=== PATIENT | male | born 1950 | race Caucasian/White ===

== ENCOUNTER 2020-05-18 11:38 | Inpatient (IN) | payer MEDICARE ==
[~2020-05-18] VITALS: Ht 165.1 cm; Wt 73.9 kg
[2020-05-18] MEDS ORDERED: PIPERACILLIN/TAZ 3.375G PREMIX 50 ML IV ONE (14:45)
[2020-05-18 14:55] LABS: HEMATOCRIT. 36.5 % (42.0-52.0); MEAN CORPUSCULAR HEMOGLOBIN 27.7 pg (28.0-32.0); MEAN CORPUSCULAR VOLUME 84.5 fL (80.0-94.0); MEAN PLATELET VOLUME 10.3 fl (7.4-10.4); PLATELET 162 x1000/uL (130-400); RED BLOOD CELL COUNT 4.32 mill/uL (4.7-6.1); RED CELL DISTRIBUTION WIDTH 12.8 % (11.6-14.6)
[2020-05-18 14:59] LABS: CHLORIDE 101 mEq/L (98-107)
[2020-05-18] MEDS ORDERED: SODIUM CHLORIDE 0.9% 1000ML BAG (SEPSIS BOLUS) IV ONE (15:30)
[2020-05-18] MEDS ORDERED: VANCOMYCIN 1 G PREMIX 200 ML IV ONE (15:30)
[2020-05-18 16:43] LABS: PLATELET ESTIMATE NORMAL
[2020-05-18] MEDS ORDERED: KETOROLAC 30MG/ML VIAL IV PRN (17:15)
[2020-05-18] MEDS ORDERED: DEXTROSE 50% WATER 50ML SYRINGE IV PRN (17:15)
[2020-05-18] MEDS: INSULIN LISPRO 100 UNITS/ML SUBCUT SCH ×2 (18:48→21:01)
[2020-05-18 19:33] LABS: CLARITY URINE CLEAR (CLEAR); COLOR URINE YELLOW (YELLOW); KETONES URINE NEGATIVE (NEGATIVE); LEUKOCYTE ESTERASE URINE NEGATIVE (NEGATIVE); NITRITE URINE NEGATIVE (NEGATIVE); OCCULT BLOOD URINE NEGATIVE (NEGATIVE); PH URINE 6.5 (4.5-8.0); PROTEIN URINE 2+ (NEGATIVE); SPECIFIC GRAVITY URINE 1.016 (1.005-1.030)
[2020-05-18] MEDS: BLOOD SUGAR DIAGNOSTIC STRIP TEST SCH (21:01)
[2020-05-18] MEDS: ENOXAPARIN 40MG/0.4ML SYR SUBCUT SCH (21:32)
[2020-05-19] VITALS (7 sets, daily range): BP systolic 122–163; BP diastolic 68–89
[2020-05-19] MEDS ORDERED: PIPERACILLIN/TAZ 3.375G PREMIX 50 ML IV SCH
[2020-05-19] MEDS: ACETAMINOPHEN 325MG TABLET PO PRN ×2 (00:06→12:16)
[2020-05-19] MEDS: CLONIDINE 0.1MG TABLET PO PRN (00:07)
[2020-05-19] MEDS: PIPERACILLIN/TAZOBACTAM 3.375 G in DEXT 5% WATER 100 ML IV SCH ×5 (00:36→23:24)
[2020-05-19] MEDS ORDERED: VANCOMYCIN 1250MG in DEXTROSE 5% WATER 250ML IV SCH (06:00)
[2020-05-19 06:26] LABS: CHLORIDE 106 mEq/L (98-107)
[2020-05-19 06:32] LABS: BASOPHILS % 0.5 % (0.0-2.0); EOSINOPHILS % 0.1 % (0.0-5.0); HEMATOCRIT. 31.6 % (42.0-52.0); HEMOGLOBIN. 10.5 g/dL (14.0-18.0); LYMPHOCYTES % 10.7 % (20.0-50.0); MEAN CORPUSCULAR HEMOGLOBIN 27.8 pg (28.0-32.0); MEAN CORPUSCULAR VOLUME 83.6 fL (80.0-94.0); MEAN PLATELET VOLUME 9.9 fl (7.4-10.4); MONOCYTES % 6.1 % (2.0-8.0); NEUTROPHILS % 82.6 % (40.0-76.0); PLATELET 139 x1000/uL (130-400); RED BLOOD CELL COUNT 3.78 mill/uL (4.7-6.1); RED CELL DISTRIBUTION WIDTH 12.8 % (11.6-14.6)
[2020-05-19] MEDS: VANCOMYCIN 1250MG in DEXTROSE 5% WATER 250ML IV SCH (06:52)
[2020-05-19] MEDS: BLOOD SUGAR DIAGNOSTIC STRIP TEST SCH ×4 (06:52→21:11)
[2020-05-19] MEDS: INSULIN LISPRO 100 UNITS/ML SUBCUT SCH ×4 (07:49→22:27)
[2020-05-19] MEDS: LISINOPRIL 20MG TABLET PO SCH (08:31)
[2020-05-19] MEDS: ENOXAPARIN 40MG/0.4ML SYR SUBCUT SCH (21:10)
[2020-05-20] VITALS: BP 126/62
[2020-05-20] MEDS: VANCOMYCIN 1250MG in DEXTROSE 5% WATER 250ML IV SCH (00:27)
[2020-05-20] MEDS: ACETAMINOPHEN 325MG TABLET PO PRN (00:49)
[2020-05-20 04:00] VITALS: BP 139/50
[2020-05-20] MEDS: PIPERACILLIN/TAZOBACTAM 3.375 G in DEXT 5% WATER 100 ML IV SCH ×4 (05:21→23:14)
[2020-05-20] MEDS: BLOOD SUGAR DIAGNOSTIC STRIP TEST SCH ×4 (06:50→21:04)
[2020-05-20 07:26] LABS: CHLORIDE 104 mEq/L (98-107)
[2020-05-20 08:00] VITALS: BP 146/78
[2020-05-20] MEDS: INSULIN LISPRO 100 UNITS/ML SUBCUT SCH ×4 (08:08→21:06)
[2020-05-20] MEDS: LISINOPRIL 20MG TABLET PO SCH (08:42)
[2020-05-20 08:51] LABS: HEMATOCRIT. 32.9 % (42.0-52.0); HEMOGLOBIN. 10.9 g/dL (14.0-18.0); MEAN CORPUSCULAR HEMOGLOBIN 27.6 pg (28.0-32.0); MEAN PLATELET VOLUME 10.3 fl (7.4-10.4); PLATELET 135 x1000/uL (130-400); RED BLOOD CELL COUNT 3.95 mill/uL (4.7-6.1); RED CELL DISTRIBUTION WIDTH 12.8 % (11.6-14.6)
[2020-05-20 08:52] LABS: MEAN CORPUSCULAR VOLUME 83.4 fL (80.0-94.0)
[2020-05-20 10:13] LABS: PLATELET ESTIMATE NORMAL
[2020-05-20 12:00] VITALS: BP 157/76
[2020-05-20 16:00] VITALS: BP 153/74
[2020-05-20] MEDS: VANCOMYCIN 750 MG PREMIX 150 ML IV SCH (18:14)
[2020-05-20 20:00] VITALS: BP 144/63
[2020-05-20] MEDS: ENOXAPARIN 40MG/0.4ML SYR SUBCUT SCH (20:27)
[2020-05-21] VITALS: BP 146/67
[2020-05-21] MEDS: ACETAMINOPHEN 325MG TABLET PO PRN (00:26)
[2020-05-21 04:00] VITALS: BP 149/65
[2020-05-21] MEDS: VANCOMYCIN 750 MG PREMIX 150 ML IV SCH ×2 (05:01→17:55)
[2020-05-21 06:22] LABS: HEMATOCRIT. 34.9 % (42.0-52.0); HEMOGLOBIN. 11.6 g/dL (14.0-18.0); MEAN CORPUSCULAR HEMOGLOBIN 27.7 pg (28.0-32.0); MEAN CORPUSCULAR VOLUME 83.4 fL (80.0-94.0); MEAN PLATELET VOLUME 10.3 fl (7.4-10.4); PLATELET 197 x1000/uL (130-400); RED BLOOD CELL COUNT 4.19 mill/uL (4.7-6.1); RED CELL DISTRIBUTION WIDTH 13.1 % (11.6-14.6)
[2020-05-21] MEDS: PIPERACILLIN/TAZOBACTAM 3.375 G in DEXT 5% WATER 100 ML IV SCH ×3 (06:45→17:55)
[2020-05-21] MEDS: BLOOD SUGAR DIAGNOSTIC STRIP TEST SCH ×4 (06:46→21:16)
[2020-05-21 06:58] LABS: CHLORIDE 102 mEq/L (98-107)
[2020-05-21 08:00] VITALS: BP 146/61
[2020-05-21] MEDS: INSULIN LISPRO 100 UNITS/ML SUBCUT SCH ×4 (08:41→21:00)
[2020-05-21] MEDS: LISINOPRIL 20MG TABLET PO SCH (08:50)
[2020-05-21 12:00] VITALS: BP 147/76
[2020-05-21 13:22] LABS: PLATELET ESTIMATE NORMAL
[2020-05-21 16:00] VITALS: BP 168/90
[2020-05-21 20:00] VITALS: BP 149/80
[2020-05-21] MEDS: ENOXAPARIN 40MG/0.4ML SYR SUBCUT SCH (21:00)
[2020-05-22] VITALS (7 sets, daily range): BP systolic 147–190; BP diastolic 67–86
[2020-05-22] MEDS: PIPERACILLIN/TAZOBACTAM 3.375 G in DEXT 5% WATER 100 ML IV SCH ×4 (00:59→17:18)
[2020-05-22 04:19] LABS: HEMATOCRIT. 31.5 % (42.0-52.0); HEMOGLOBIN. 10.5 g/dL (14.0-18.0); MEAN CORPUSCULAR HEMOGLOBIN 27.4 pg (28.0-32.0); MEAN CORPUSCULAR VOLUME 82.2 fL (80.0-94.0); MEAN PLATELET VOLUME 9.5 fl (7.4-10.4); RED BLOOD CELL COUNT 3.83 mill/uL (4.7-6.1); RED CELL DISTRIBUTION WIDTH 13.1 % (11.6-14.6)
[2020-05-22 04:22] LABS: CHLORIDE 101 mEq/L (98-107)
[2020-05-22 04:39] LABS: VANCOMYCIN TROUGH 14.5 ug/mL (5.0-10.0)
[2020-05-22] MEDS: VANCOMYCIN 750 MG PREMIX 150 ML IV SCH (06:51)
[2020-05-22] MEDS: BLOOD SUGAR DIAGNOSTIC STRIP TEST SCH ×4 (07:06→21:29)
[2020-05-22 07:33] LABS: PLATELET ESTIMATE NORMAL
[2020-05-22 07:34] LABS: PLATELET 149 x1000/uL (130-400)
[2020-05-22] MEDS: INSULIN LISPRO 100 UNITS/ML SUBCUT SCH ×4 (08:46→21:39)
[2020-05-22] MEDS: LISINOPRIL 20MG TABLET PO SCH (09:09)
[2020-05-22] MEDS: CLONIDINE 0.1MG TABLET PO PRN (09:12)
[2020-05-22] MEDS ORDERED: IOHEXOL-350 100 ML BOTTLE ONE (10:41)
[2020-05-22] MEDS ORDERED: AMLODIPINE 10MG TABLET PO NR (13:30)
[2020-05-22] MEDS: VANCOMYCIN 1 G PREMIX 200 ML IV SCH (17:19)
[2020-05-22] MEDS: TAMSULOSIN HCL 0.4MG SR CAPSULE PO SCH (18:47)
[2020-05-22] MEDS: ENOXAPARIN 40MG/0.4ML SYR SUBCUT SCH (21:00)
[2020-05-23] VITALS: BP 117/70
[2020-05-23] MEDS: PIPERACILLIN/TAZOBACTAM 3.375 G in DEXT 5% WATER 100 ML IV SCH ×3 (00:19→12:00)
[2020-05-23 04:00] VITALS: BP 117/72
[2020-05-23] MEDS: VANCOMYCIN 1 G PREMIX 200 ML IV SCH ×3 (05:56→19:08)
[2020-05-23] MEDS: BLOOD SUGAR DIAGNOSTIC STRIP TEST SCH ×4 (06:20→21:30)
[2020-05-23 08:00] VITALS: BP 162/73
[2020-05-23] MEDS: AMLODIPINE 10MG TABLET PO SCH (08:37)
[2020-05-23] MEDS: LISINOPRIL 20MG TABLET PO SCH (08:37)
[2020-05-23] MEDS: TAMSULOSIN HCL 0.4MG SR CAPSULE PO SCH (08:39)
[2020-05-23] MEDS: ACETAMINOPHEN 325MG TABLET PO PRN (08:40)
[2020-05-23] MEDS: INSULIN LISPRO 100 UNITS/ML SUBCUT SCH ×4 (08:40→21:34)
[2020-05-23 12:00] VITALS: BP 133/71
[2020-05-23] MEDS ORDERED: NITROGLYCERIN 0.2MG/HR PATCH TOP STA (12:15)
[2020-05-23] MEDS ORDERED: GENTAMICIN SULF 40MG/ML 2ML VIAL ONE (12:23)
[2020-05-23] MEDS ORDERED: BACITRACIN 50,000 UNITS/VIAL ONE (12:23)
[2020-05-23] MEDS ORDERED: VANCOMYCIN HCL 1 GM/VIAL ONE (12:23)
[2020-05-23] MEDS ORDERED: LIDOCAINE HCL 1% 20ML VIAL (Pyxis) INJ ONE (12:24)
[2020-05-23] MEDS ORDERED: BUPIVACAINE HCL/PF 0.5% (5MG/ML) 10ML ONE (12:24)
[2020-05-23] MEDS ORDERED: LIDOCAINE HCL/PF 1% 10 MG/ML 5ML VIAL ONE (12:34)
[2020-05-23] MEDS ORDERED: FENTANYL CITRATE/PF 50MCG/ML 2ML VIAL ONE (12:34)
[2020-05-23] MEDS ORDERED: PROPOFOL 200MG/20ML VIAL IV ONE (12:34)
[2020-05-23] MEDS ORDERED: CEFAZOLIN SODIUM 1000MG/VIAL ONE (12:34)
[2020-05-23] MEDS ORDERED: SODIUM CHLORIDE 0.9% 10ML VIAL ONE (12:35)
[2020-05-23] MEDS ORDERED: EPHEDRINE SULFATE 50MG/ML VIAL ONE (13:11)
[2020-05-23] MEDS ORDERED: FENTANYL CITRATE/PF 50MCG/ML 2ML VIAL IV PRN (14:00)
[2020-05-23] MEDS ORDERED: MEPERIDINE HCL/PF 25MG/ML CPJ IV PRN (14:00)
[2020-05-23 16:00] VITALS: BP 87/51
[2020-05-23 20:00] VITALS: BP 121/62
[2020-05-23] MEDS: ENOXAPARIN 40MG/0.4ML SYR SUBCUT SCH (21:35)
[2020-05-24] VITALS (7 sets, daily range): BP systolic 104–159; BP diastolic 33–75
[2020-05-24] MEDS: PIPERACILLIN/TAZOBACTAM 3.375 G in DEXT 5% WATER 100 ML IV SCH ×4 (00:52→17:30)
[2020-05-24 05:03] LABS: CHLORIDE 104 mEq/L (98-107); VANCOMYCIN TROUGH 10.7 ug/mL (5.0-10.0)
[2020-05-24 05:27] LABS: BASOPHILS % 0.8 % (0.0-2.0); EOSINOPHILS % 0.1 % (0.0-5.0); HEMATOCRIT. 28.4 % (42.0-52.0); HEMOGLOBIN. 9.4 g/dL (14.0-18.0); MEAN CORPUSCULAR HEMOGLOBIN 27.4 pg (28.0-32.0); MEAN CORPUSCULAR VOLUME 83.3 fL (80.0-94.0); MEAN PLATELET VOLUME 9.1 fl (7.4-10.4); MONOCYTES % 6.3 % (2.0-8.0); NEUTROPHILS % 83.8 % (40.0-76.0); PLATELET 243 x1000/uL (130-400); RED BLOOD CELL COUNT 3.41 mill/uL (4.7-6.1); RED CELL DISTRIBUTION WIDTH 13.2 % (11.6-14.6)
[2020-05-24] MEDS: BLOOD SUGAR DIAGNOSTIC STRIP TEST SCH ×4 (07:50→21:35)
[2020-05-24] MEDS ORDERED: HYDR-4001 MT (08:22)
[2020-05-24] MEDS: TAMSULOSIN HCL 0.4MG SR CAPSULE PO SCH (08:40)
[2020-05-24] MEDS: AMLODIPINE 10MG TABLET PO SCH (08:40)
[2020-05-24] MEDS: LISINOPRIL 20MG TABLET PO SCH (08:41)
[2020-05-24] MEDS: INSULIN LISPRO 100 UNITS/ML SUBCUT SCH ×4 (09:02→21:45)
[2020-05-24] MEDS ORDERED: LISI-604 PO (12:49)
[2020-05-24] MEDS ORDERED: AMLO10TA80 PO (12:49)
[2020-05-24] MEDS ORDERED: TAMS-11 PO (12:49)
[2020-05-24] MEDS: VANCOMYCIN 750 MG PREMIX 150 ML IV SCH ×2 (12:57→21:37)
[2020-05-24] MEDS: ACETAMINOPHEN 325MG TABLET PO PRN (16:13)
[2020-05-24] MEDS: NITROGLYCERIN 0.2MG/HR PATCH TOP SCH (17:31)
[2020-05-24] MEDS: ENOXAPARIN 40MG/0.4ML SYR SUBCUT SCH (21:37)
[2020-05-25] VITALS: BP 110/58
[2020-05-25] MEDS: PIPERACILLIN/TAZOBACTAM 3.375 G in DEXT 5% WATER 100 ML IV SCH ×4 (00:11→18:00)
[2020-05-25 04:00] VITALS: BP 125/66
[2020-05-25] MEDS: VANCOMYCIN 750 MG PREMIX 150 ML IV SCH ×2 (06:25→14:45)
[2020-05-25 06:39] LABS: BASOPHILS % 0.9 % (0.0-2.0); EOSINOPHILS % 0.5 % (0.0-5.0); HEMATOCRIT. 28.6 % (42.0-52.0); HEMOGLOBIN. 9.4 g/dL (14.0-18.0); LYMPHOCYTES % 8.8 % (20.0-50.0); MEAN CORPUSCULAR HEMOGLOBIN 27.4 pg (28.0-32.0); MEAN CORPUSCULAR VOLUME 82.8 fL (80.0-94.0); MEAN PLATELET VOLUME 9.3 fl (7.4-10.4); NEUTROPHILS % 82.8 % (40.0-76.0); PLATELET 301 x1000/uL (130-400); RED BLOOD CELL COUNT 3.45 mill/uL (4.7-6.1); RED CELL DISTRIBUTION WIDTH 12.7 % (11.6-14.6)
[2020-05-25 08:00] VITALS: BP 126/81
[2020-05-25] MEDS: BLOOD SUGAR DIAGNOSTIC STRIP TEST SCH ×3 (08:03→17:30)
[2020-05-25] MEDS: LISINOPRIL 20MG TABLET PO SCH (08:46)
[2020-05-25] MEDS: TAMSULOSIN HCL 0.4MG SR CAPSULE PO SCH (08:46)
[2020-05-25] MEDS: AMLODIPINE 10MG TABLET PO SCH (08:47)
[2020-05-25] MEDS: INSULIN LISPRO 100 UNITS/ML SUBCUT SCH ×3 (09:01→17:33)
[2020-05-25 12:00] VITALS: BP 111/63
[2020-05-25 16:00] VITALS: BP 104/50
[2020-05-25] MEDS: NITROGLYCERIN 0.2MG/HR PATCH TOP SCH (18:00)
[2020-05-26] MEDS ORDERED: METF-415 PO (22:30)
== END 2020-05-25 18:41 | disposition home health service (06) | DRG 854 ==
LOC: ER 11:38 → 6EST 17:12 → EDBEDREQSVC 17:16 → EDBEDREQ 17:16 → ENRESERV 20:27
PROVIDERS: ADMIT Internal Medicine; ATTEND Internal Medicine
PROC: 0Y6M0Z9 Detachment at Right Foot, Partial 1st Ray, Open Approach (ICD-10-PCS; principal; 2020-05-23)
DX: A41.9 Sepsis, unspecified organism (principal); E44.0 Moderate protein-calorie malnutrition; E11.52 Type 2 diabetes mellitus with diabetic peripheral angiopathy with gangrene; L03.115 Cellulitis of right lower limb; E87.1 Hypo-osmolality and hyponatremia; E87.2 Acidosis; D64.9 Anemia, unspecified; E11.621 Type 2 diabetes mellitus with foot ulcer; L97.519 Non-pressure chronic ulcer of other part of right foot with unspecified severity; I99.8 Other disorder of circulatory system; K76.0 Fatty (change of) liver, not elsewhere classified; N40.0 Benign prostatic hyperplasia without lower urinary tract symptoms; W01.0XXA Fall on same level from slipping, tripping and stumbling without subsequent striking against object, initial encounter; Y93.89 Activity, other specified; Y92.481 Parking lot as the place of occurrence of the external cause; Y99.8 Other external cause status; Z68.27 Body mass index [BMI] 27.0-27.9, adult
CPT/HCPCS: 36415; 71045; 73630; 75635; 80048; 80053; 80202; 81003; 82962; 83605; 85025; 87070; 87075; 87077; 87186; 88304; 88311; 93005; 93923; 96365; 99291; J0690; J1580; J1650; J1815; J1885; J2543; J2704; J3010; J3370; J3490; J7030; J7060; Q9967

== ENCOUNTER 2020-05-26 15:17 | Inpatient (IN) | payer MEDICARE ==
[~2020-05-26] VITALS: Ht 165.1 cm; Wt 78.5 kg
[~2020-05-26 15:17] MED LIST: AMLO10TA80 PO; HYDR-4001 MT; LISI-604 PO; TAMS-11 PO
[2020-05-26] MEDS ORDERED: CEFEPIME HCL 1000MG/VIAL INJ IM ONE (18:00)
[2020-05-26 18:45] LABS: BASOPHILS % 0.7 % (0.0-2.0); EOSINOPHILS % 0.4 % (0.0-5.0); HEMATOCRIT. 30.8 % (42.0-52.0); HEMOGLOBIN. 10.1 g/dL (14.0-18.0); LYMPHOCYTES % 8.3 % (20.0-50.0); MEAN CORPUSCULAR HEMOGLOBIN 27.1 pg (28.0-32.0); MEAN CORPUSCULAR VOLUME 82.4 fL (80.0-94.0); MONOCYTES % 6.4 % (2.0-8.0); NEUTROPHILS % 84.2 % (40.0-76.0); PLATELET 454 x1000/uL (130-400); RED BLOOD CELL COUNT 3.74 mill/uL (4.7-6.1); RED CELL DISTRIBUTION WIDTH 13.6 % (11.6-14.6)
[2020-05-26 18:48] LABS: CHLORIDE 106 mEq/L (98-107)
[2020-05-26] MEDS ORDERED: CEFEPIME 1,000 MG in DEXTROSE 5% WATER 50 ML IV SCH (19:00)
[2020-05-26 21:35] VITALS: BP 154/80
[2020-05-26 21:45] VITALS: BP 154/80
[2020-05-26] MEDS ORDERED: METF-415 PO (22:30)
[2020-05-26] MEDS: LISINOPRIL 40MG TABLET PO SCH (22:45)
[2020-05-26] MEDS ORDERED: DEXTROSE 50% WATER 50ML SYRINGE IV PRN (22:45)
[2020-05-27] VITALS: BP 148/72
[2020-05-27 00:01] LABS: CLARITY URINE CLEAR (CLEAR); COLOR URINE YELLOW (YELLOW); KETONES URINE TRACE (NEGATIVE); LEUKOCYTE ESTERASE URINE NEGATIVE (NEGATIVE); NITRITE URINE NEGATIVE (NEGATIVE); OCCULT BLOOD URINE TRACE (NEGATIVE); PH URINE 5.5 (4.5-8.0); PROTEIN URINE 1+ (NEGATIVE); SPECIFIC GRAVITY URINE 1.018 (1.005-1.030); UROBILINOGEN URINE 0.2 E.U./dL (0.2-1.0)
[2020-05-27] MEDS ORDERED: POTASSIUM CHLORIDE 20MEQ TABLET SR PO NR (00:15)
[2020-05-27] MEDS: MEROPENEM 500 MG in SODIUM CHLORIDE 0.9% 50 ML IV SCH ×3 (01:33→17:09)
[2020-05-27 04:00] VITALS: BP 135/72
[2020-05-27] MEDS: BLOOD SUGAR DIAGNOSTIC STRIP TEST SCH ×4 (06:41→21:46)
[2020-05-27 07:08] LABS: BASOPHILS % 0.8 % (0.0-2.0); EOSINOPHILS % 0.8 % (0.0-5.0); HEMOGLOBIN. 9.3 g/dL (14.0-18.0); MEAN CORPUSCULAR HEMOGLOBIN 27.3 pg (28.0-32.0); MEAN CORPUSCULAR VOLUME 82.6 fL (80.0-94.0); MEAN PLATELET VOLUME 8.9 fl (7.4-10.4); MONOCYTES % 7.2 % (2.0-8.0); NEUTROPHILS % 78.2 % (40.0-76.0); PLATELET 386 x1000/uL (130-400); RED BLOOD CELL COUNT 3.39 mill/uL (4.7-6.1); RED CELL DISTRIBUTION WIDTH 13.1 % (11.6-14.6)
[2020-05-27 07:27] LABS: CHLORIDE 110 mEq/L (98-107)
[2020-05-27 07:34] LABS: LDL CHOLESTEROL 69 mg/dL (5-100)
[2020-05-27 07:35] LABS: HDL CHOLESTEROL 27 mg/dL (40-59)
[2020-05-27 08:00] VITALS: BP 134/73
[2020-05-27] MEDS ORDERED: PNEUMOCOCCAL 23-VAL P-SAC VAC 0.5 ML IM ONE (08:00)
[2020-05-27] MEDS: INSULIN LISPRO 100 UNITS/ML SUBCUT SCH ×4 (08:21→21:45)
[2020-05-27] MEDS: METFORMIN HCL 500MG TABLET PO SCH ×2 (08:22→17:09)
[2020-05-27] MEDS: LISINOPRIL 40MG TABLET PO SCH (08:23)
[2020-05-27] MEDS ORDERED: ENOXAPARIN 40MG/0.4ML SYR SUBCUT SCH (09:00)
[2020-05-27 12:00] VITALS: BP 157/74
[2020-05-27 16:00] VITALS: BP 137/74
[2020-05-27 20:00] VITALS: BP 114/91
[2020-05-27] MEDS: ATORVASTATIN CALCIUM 40MG TABLET PO SCH (21:42)
[2020-05-28] VITALS (7 sets, daily range): BP systolic 130–177; BP diastolic 76–91
[2020-05-28] MEDS: MEROPENEM 500 MG in SODIUM CHLORIDE 0.9% 50 ML IV SCH ×3 (01:24→16:49)
[2020-05-28] MEDS: INSULIN LISPRO 100 UNITS/ML SUBCUT SCH ×4 (07:02→21:21)
[2020-05-28] MEDS: BLOOD SUGAR DIAGNOSTIC STRIP TEST SCH ×4 (07:10→21:07)
[2020-05-28] MEDS: METFORMIN HCL 500MG TABLET PO SCH ×2 (08:24→16:49)
[2020-05-28] MEDS: ENOXAPARIN 40MG/0.4ML SYR SUBCUT SCH (08:24)
[2020-05-28] MEDS: LISINOPRIL 40MG TABLET PO SCH (08:24)
[2020-05-28] MEDS ORDERED: LIDOCAINE HCL 1% 20ML VIAL (Pyxis) INJ ONE (09:16)
[2020-05-28] MEDS: NITROGLYCERIN 0.2MG/HR PATCH TOP SCH (11:17)
[2020-05-28] MEDS: ATORVASTATIN CALCIUM 40MG TABLET PO SCH (21:16)
[2020-05-29] VITALS: BP 118/73
[2020-05-29] MEDS: MEROPENEM 500 MG in SODIUM CHLORIDE 0.9% 50 ML IV SCH ×2 (01:13→10:28)
[2020-05-29 04:00] VITALS: BP 142/80
[2020-05-29] MEDS: BLOOD SUGAR DIAGNOSTIC STRIP TEST SCH ×2 (06:54→12:20)
[2020-05-29] MEDS: INSULIN LISPRO 100 UNITS/ML SUBCUT SCH ×2 (06:54→12:40)
[2020-05-29 08:00] VITALS: BP 162/80
[2020-05-29] MEDS: LISINOPRIL 40MG TABLET PO SCH (08:13)
[2020-05-29] MEDS: METFORMIN HCL 500MG TABLET PO SCH (08:13)
[2020-05-29] MEDS: ENOXAPARIN 40MG/0.4ML SYR SUBCUT SCH (08:14)
[2020-05-29] MEDS: NITROGLYCERIN 0.2MG/HR PATCH TOP SCH (08:14)
[2020-05-29 12:00] VITALS: BP 167/78
[2020-05-29 14:43] VITALS: BP 147/78
== END 2020-05-29 15:54 | disposition home health service (06) | DRG 564 ==
LOC: ER 15:17 → EDBEDREQSVC 18:35 → EDBEDREQTM 18:35 → EDBEDREQ 18:35 → EDBEDREQTM 19:50 → EDBEDREQ 20:16 → EDBEDREQTM 20:16 → ENRESERV 20:30 → 8WST 21:33
PROVIDERS: ADMIT Internal Medicine; ATTEND Internal Medicine
PROC: 02HV33Z Insertion of Infusion Device into Superior Vena Cava, Percutaneous Approach (ICD-10-PCS; principal; 2020-05-28)
PROC: B548ZZA Ultrasonography of Superior Vena Cava, Guidance (ICD-10-PCS; 2020-05-28)
PROC: B5181ZA Fluoroscopy of Superior Vena Cava using Low Osmolar Contrast, Guidance (ICD-10-PCS; 2020-05-28)
DX: T87.43 Infection of amputation stump, right lower extremity (principal); E43 Unspecified severe protein-calorie malnutrition; A41.9 Sepsis, unspecified organism; E11.52 Type 2 diabetes mellitus with diabetic peripheral angiopathy with gangrene; L03.115 Cellulitis of right lower limb; M86.171 Other acute osteomyelitis, right ankle and foot; Y83.5 Amputation of limb(s) as the cause of abnormal reaction of the patient, or of later complication, without mention of misadventure at the time of the procedure; L97.519 Non-pressure chronic ulcer of other part of right foot with unspecified severity; E11.621 Type 2 diabetes mellitus with foot ulcer; E87.6 Hypokalemia; K76.0 Fatty (change of) liver, not elsewhere classified; E11.40 Type 2 diabetes mellitus with diabetic neuropathy, unspecified; N40.0 Benign prostatic hyperplasia without lower urinary tract symptoms; R94.31 Abnormal electrocardiogram [ECG] [EKG]; E11.69 Type 2 diabetes mellitus with other specified complication; S90.821A Blister (nonthermal), right foot, initial encounter; X58.XXXA Exposure to other specified factors, initial encounter; Y93.89 Activity, other specified; Y99.8 Other external cause status; Y92.89 Other specified places as the place of occurrence of the external cause
CPT/HCPCS: 36415; 36573; 76937; 80048; 80053; 80061; 81003; 82962; 83036; 83605; 85025; 90732; 93005; 96365; 99285; C1725; J0692; J1650; J1815; J2185; J3490; J7060